=== PATIENT | male | born 1950 | race Caucasian/White ===

== ENCOUNTER 2020-12-25 04:42 | Outpatient (CLI) | payer OTHER, SELFPAY ==
[2020-12-25 11:53] LABS: Calculated LDL 114 mg/dL (<100); Cholesterol 193 mg/dL (<200); HDL Cholesterol 70 mg/dL (40-60); Triglyceride 46 mg/dL (<150)
== END 2020-12-25 04:43 | disposition home or self-care (01) ==
LOC: LBO 04:42
PROVIDERS: PCP Family Medicine; Visit Provider Family Medicine
DX: E78.5 Hyperlipidemia, unspecified (principal)
CPT/HCPCS: 36415; 80061

== ENCOUNTER 2021-12-22 02:27 | Outpatient (CLI) | payer MEDICARE, SELFPAY ==
[2021-12-22 13:58] LABS: HCT 42.6 % (40.0-50.0); HGB 13.8 g/dL (13.5-17.5); MCH 29.5 pg (27.0-33.0); MCHC 32.4 % (32.0-36.0); MCV 91 fL (80-95); MPV 9.9 fL (8.0-11.0); Platelet Count 229 10^3/uL (130-400); RBC 4.68 10^6/uL (4.36-5.78); RDW 13.2 % (11.8-14.1); RDW-SD 44.2 fL; WBC 7.69 10^3/uL (4.4-10.8)
[2021-12-22 22:33] LABS: PSA, Screening 1.4 ng/mL (<=6.5)
== END 2021-12-22 02:28 | disposition home or self-care (01) ==
LOC: LBO 02:28
PROVIDERS: PCP Family Medicine; Visit Provider Family Medicine
DX: R53.83 Other fatigue (principal); Z12.5 Encounter for screening for malignant neoplasm of prostate
CPT/HCPCS: 36415; 84153; 85027

== ENCOUNTER 2024-01-13 11:21 | Outpatient (CLI) | payer MEDICARE, SELFPAY ==
[2024-01-13 13:09] LABS: Calculated LDL 118 mg/dL (<100); Cholesterol 205 mg/dL (<200); Glucose 110 mg/dL (74-106); HDL Cholesterol 72 mg/dL (40-60); Triglyceride 78 mg/dL (<150)
== END 2024-01-13 11:22 | disposition home or self-care (01) ==
LOC: LOS 11:21
PROVIDERS: PCP Family Medicine; Referring Provider Family Medicine; Visit Provider Family Medicine
DX: Z12.5 Encounter for screening for malignant neoplasm of prostate (principal); E78.5 Hyperlipidemia, unspecified; R73.9 Hyperglycemia, unspecified
CPT/HCPCS: 36415; 80061; 82947; 84153

== ENCOUNTER 2024-04-20 16:19 | Emergency (ER) | payer MEDICARE, SELFPAY ==
[2024-04-20] VITALS (8 sets, daily range): BP systolic 153–178; BP diastolic 67–84; PULSE 54–63; RESP 13–16; TEMP 36.7–37; O2SAT 95–98
--- NOTE | 2024-04-20 17:08 | W.ED.GENAD ---
Discharge Plan Disposition Patient Disposition: Home Discharge Details Clinical Impression: Kidney stone on right side Primary Care Provider: Luis Enrique Emanuel ED Provider: Itzel Villarreal Home Meds and New Rx's Prescriptions: New tamsulosin 0.4 mg capsule 0.4 mg PO DAILY Qty: 14 0RF ondansetron 4 mg tablet,disintegrating 4 mg PO Q8H PRNQty: 20 0RF Continued albuterol sulfate 90 mcg/actuation HFA aerosol inhaler 2 puff IH 6XD PRN (Reason: shortness of breath or wheezing) Qty: 18 2RF multivitamin [Daily Multi-Vitamin] 1 EACH tablet 1 ea PO DAILY cholecalciferol (vitamin D3) 1,000 UNIT capsule 1,000 unit PO DAILY Discharge Instructions Instructions: How to Strain Your Urine, Kidney Stone, Adult ED Additional Instructions: Please call Dr. Richardson's office first thing in the morning to schedule follow-up appointment for evaluation of your kidney stone. Use the Flomax as prescribed. I recommend that you take 600 mg of ibuprofen every 8 hours as needed for discomfort. Your next dose is due at 9:00 p.m. You may use the Zofran provided as needed for nausea/vomiting. Stay well-hydrated, drinking plenty of fluids throughout the day. Eat a gentle diet. Please strain your urine every time you go to catch any stones or stone fragments. Return to emergency care if you develop new fever, inability to urinate, uncontrollable vomiting, worsening abdominal pain despite treatment, or if you are very worried and need to be rechecked again immediately Referrals: [facility] [Provider Group] [facility] General Date/Time Provider Initiated Documentation: 04/20/24 17:00. HPI Narrative: Zechariah is a 74-year-old male who presents to the emergency department today for evaluation of right lower quadrant pain. He reports that last night he had chills when he went to bed. He woke up in the middle of the night with right lower quadrant pain. Has been intermittent throughout the day, waxing and waning with feeling of being feverish.. He has been taking ibuprofen for discomfort with some improvement in symptoms. He has also had nausea/vomiting throughout the day, unable to hold down any p.o. Denies recorded fever, congestion, sore throat, cough, change in urine output, hematuria, diarrhea. He does have history of abdominal surgery, bilateral hernia repairs. He has not had a colonoscopy. He denies abdominal pain at this time. Physical exam very reassuring. Patient is alert and oriented, no acute distress. Moist mucous membranes. Abdomen soft, nondistended, nontender to palpation, no rigidity or guarding. Negative psoas sign. Easy work of breathing, lung sounds clear bilaterally. Normal heart sounds. DDx includes but is not limited to: Appendicitis, diverticulitis, nephrolithiasis, bowel obstruction, colitis I independently interpreted the following tests: CBC, CMP reassuring. Mildly elevated BUN to creatinine ratio consistent with mild dehydration. UA reassuring, no concern for UTI. CT abdomen/pelvis performed, significant for 3.3 mm ureteral stone on right side. While in the emergency department Zechariah received IV fluids, Zofran for nausea, Tylenol for discomfort, and Flomax to help facilitate passage of stone. He was able to tolerate p.o. denise pal and crackers without difficulty. As pain has been well-controlled with ibuprofen/Tylenol and patient is able to tolerate p.o. at this time, patient is safe to discharge home and does not require hospitalization to manage symptoms. Recommend straining urine at home, using Flomax and Zofran as needed, and follow-up with urology for management of kidney stone. Reviewed red flags indicating need for return to emergency care. Patient and his voiced agreement with plan of care. Related Data Home Medications ?Medication ?Instructions ?Recorded ?Confirmed cholecalciferol (vitamin D3) 25 1,000 unit PO DAILY 11/26/17 01/13/24 mcg (1,000 unit) capsule multivitamin (Daily Multi-Vitamin 1 ea PO DAILY 11/26/17 01/13/24 tablet) albuterol sulfate 90 mcg/actuation 2 puff inhalation 6XD PRN 01/13/24 01/13/24 aerosol inhaler shortness of breath or wheezing #18 grams ondansetron 4 mg disintegrating 4 mg PO Q8H PRN #20 tabs 04/20/24 tablet tamsulosin 0.4 mg capsule 0.4 mg PO DAILY #14 caps 04/20/24 Previous Rx's ?Medication ?Instructions ?Recorded albuterol sulfate 90 mcg/actuation 2 puff inhalation 6XD PRN 05/23/24 aerosol inhaler shortness of breath or wheezing #18 grams ondansetron 4 mg disintegrating 4 mg PO Q8H PRN #20 tabs 04/20/24 tablet tamsulosin 0.4 mg capsule 0.4 mg PO DAILY #14 caps 04/20/24 Allergies Allergy/AdvReac Type Severity Reaction Status Date / Time No Known Allergies Allergy Verified 04/20/24 16:30 General Stated Complaint: Abd Prob SUSAN: 3 Review of Systems Narrative: see HPI Exam Const General: cooperative, healthy appearing, comfortable, no acute distress and well developed Nutritional Appearance: average body habitus HENSD Head: normal to inspection General nose exam: external nose normal Mouth: oral mucosae normal and moist mucous membranes Throat: posterior oropharynx normal Resp Effort & Inspection: normal respiratory effort and able to speak in complete sentences Auscultation: clear to auscultation bilaterally Cardio Rate: regular rate Rhythm: regular rhythm GI Inspection: normal to inspection and non-distended Palpation: soft, not firm, no guarding and nontender Auscultation: normal bowel sounds Course Vital Signs Vital signs: Vital Signs Temperature 36.7 C 04/20/24 16:26 Pulse 54 L 04/20/24 16:26 Respiratory Rate 13 04/20/24 16:26 Blood Pressure 178/84 H 04/20/24 16:26 Pulse Oximetry 95 04/20/24 16:26 Temperature 36.7 C 04/20/24 16:26 Pulse 54 L 04/20/24 16:26 Respiratory Rate 13 04/20/24 16:26 Blood Pressure 178/84 H 04/20/24 16:26 Pulse Oximetry 95 04/20/24 16:26 Oxygen Delivery Method Room Air 04/20/24 16:26 Oxygen Flow Rate 0 04/20/24 16:26 Pain Level 7 04/20/24 16:26 Medical Decision Making Quality:SDOH Health Related Social Needs: No Data to Display PFSH All Active Problems (Updated 04/20/24 @ 19:37 by Itzel Higgins) Kidney stone on right side (Acute) Physical exam (Acute) COVID-19 (Acute) Onset-07/27/22 Vaccinated x3 Adjustment disorder with depressed mood (Acute) Erectile dysfunction (Acute) Carpal tunnel syndrome on left (Acute) Screening for prostate cancer (Acute) Hydrocele (Acute 03/11/13) Unilateral inguinal hernia (Acute) right Wheezing (Acute) Surgical History Repair of inguinal hernia B/L Family History Mother Neoplasm BREAST Stroke Brother Depression Stroke Social History (Updated 01/20/24 @ 18:13 by Eva Ulloa) Smoking/Tobacco Use Status: Never Second Hand Exposure: Yes Smoking risk assessment performed?: Yes Alcohol Intake: never Drug use: Never Substance use type: does not use Adopted: No Caregiver/Support person: No Household members: significant other Housing: house Number of Children: 2 Communication Needs: Deaf and Hard of Hearing Education Level: high school Do you need help understanding health information?: Often 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 Pets and animals: Yes Pets and animals: farm animals Sexually active: No Do you think of yourself as: straight/heterosexual Current gender identity: male What is your relationship status?: living with partner How often do you talk on the phone with friends or family?: three or more times per week How often do you get together with friends or relatives?: once per week How often do you attend latter-day or alevism services?: decline to answer Do you belong to any clubs or organized social groups?: no Panel score (0-1 are the most socially isolated patients): 2 What type of physical activity do you participate in: other 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
[2024-04-20] MEDS: ACETAMINOPHEN 1,000 MG/100 ML BTL 400 MG IVPB (17:22)
[2024-04-20 17:24] LABS: Abs Immature Grans 0.04 10^3/uL (0.0-0.06); Absolute Basophil Count 0.02 10^3/uL (0.0-0.2); Absolute Eosinophil Count 0.06 10^3/uL (0.0-0.7); Absolute Lymphocyte Count 0.62 10^3/uL (1.2-3.4); Absolute Monocyte Count 0.48 10^3/uL (0.1-0.8); Absolute Neutrophil Count 9.16 10^3/uL (1.2-6.7); Basophils % 0.2 %; Eosinophils % 0.6 %; HCT 41.2 % (40.0-50.0); HGB 13.9 g/dL (13.5-17.5); Immature Grans % 0.4 %; MCH 29.9 pg (27.0-33.0); MCHC 33.7 % (32.0-36.0); MCV 89 fL (80-95); MPV 9.6 fL (8.0-11.0); Monocytes % 4.6 %; Neutrophils % 88.2 %; Platelet Count 206 10^3/uL (130-400); RBC 4.65 10^6/uL (4.36-5.78); RDW-SD 42.2 fL; WBC 10.38 10^3/uL (4.4-10.8)
[2024-04-20] MEDS: Normal Saline 1,000 ML 125 ML IV (17:24)
[2024-04-20] MEDS: Ondansetron 4 MG/2 ML VIAL IVP (17:24)
[2024-04-20 17:32] LABS: Lipase 28 U/L (16-77)
[2024-04-20 17:38] LABS: ALT 22 U/L (16-63); AST 17 U/L (15-37); Albumin 4.1 g/dL (3.4-5.0); Alkaline Phosphatase 104 U/L (46-116); Anion Gap 6.3 mmol/L (3-11); BUN 30 mg/dL (7-18); Bilirubin, Total 0.46 mg/dL (0.2-1.0); CO2 29.7 mmol/L (21.0-32.0); CREATININE 1.4 mg/dL (0.70-1.30); Calcium 9.4 mg/dL (8.5-10.1); Chloride 102 mmol/L (98-107); Estimated GFR 52.09 (mL/min/1.73m2); Glucose 123 mg/dL (74-106); Magnesium 2.1 mg/dL (1.8-2.4); Potassium 4.3 mmol/L (3.5-5.1); Sodium 138 mmol/L (136-145); Total Protein 7.7 g/dL (6.4-8.2)
--- NOTE | 2024-04-20 18:00 | DI.CT_ITS ---
Exam(s) CT ABDOMEN PELVIS W EXAM: CT ABDOMEN PELVIS W CLINICAL HISTORY: RLQ pain, n/v. TECHNIQUE: Imaging Protocol: Axial computed tomography images with coronal and sagittal reformatted images were created and reviewed CONTRAST MATERIAL: Intravenous: Omnipaque-350 100cc Oral: None COMPARISON: No exams were available for comparison FINDINGS: VISUALIZED LUNG BASES: No nodules nor pleural effusions evident. ABDOMEN: There is no ascites. LIVER: There are no focal hepatic lesions evident. No dilated intrahepatic ducts. GALLBLADDER/BILIARY: No obvious gallbladder pathology. CBD is not dilated. PANCREAS: No evidence of pancreatic mass nor dilatation of the pancreatic duct. SPLEEN: Spleen is not enlarged. No obvious intrasplenic lesions. Small splenic calcified granulomas incidentally noted. Splenic and portal veins are patent. ADRENALS: There are no significant adrenal masses. KIDNEYS:A small benign cortical cyst in the lateral cortex of the left kidney which measures 9 mm. D oes not require further workup. No significant focal left kidney findings. In the opposite-right ki dney there is also another benign similar size cyst. However, there is unilateral right-sided perine phric streaking and mild dilatation of the right collecting system including the right ureter down to the level of the 3-4 mm calculus in the lower right ureter just above the UVJ. There are no calculi within the urinary bladder. ABDOMINAL AORTA: Abdominal aorta is not enlarged. LYMPH NODES:There is no retroperitoneal nor paraaortic adenopathy. ABDOMINAL WALL: There is evidence of right inguinal hernia repair. No obvious hernia at this time no r other anterior abdominal hernias. GI: There is no evidence of bowel obstruction, free air, nor abscess. PELVIS: GI: No evidence of appendicitis.Extensive sigmoid diverticulosis without evidence of obvious acute di verticulitis. LYMPH NODES: There is no intrapelvic nor inguinal adenopathy. REPRODUCTIVE: Moderately enlarged prostate gland. Measures 5.7 cm wide. URINARY BLADDER: No calculi nor obvious masses evident OSSEOUS: No fractures and no significant osseous lesions. IMPRESSION: 1. There is a 3-4 mm calculus in the distal right ureter resulting in mild hydronephrosis and hydrour eter above this level. There is also ipsilateral perinephric streaking evident. The opposite-left k idney appears unremarkable. 2. No calculi seen in the urinary bladder. RADIATION DOSE DELIVERED: 322.24mGy.cm Total DLP DATA REPOSITORY: All CT scans at this facility are submitted to the National Radiology Data Registry (NRDR) Dose Index Registry (DIR) with the [employer] (ACR). RADIATION OPTIMIZATION: All CT scans at this facility use at least one of these dose optimization te chniques: automated exposure control; mA and/or kV adjustment per patient size (includes targeted exa ms where dose is matched to clinical indication); or iterative reconstruction.
[2024-04-20] MEDS: Omnipaque 350 MG/ML 100 ML BTL IJ (18:01)
[2024-04-20] MEDS: Normal Saline - Diluent 50 ML VIAL IJ (18:03)
--- NOTE | 2024-04-20 18:33 | DI.[facility]_ITS ---
PROCEDURE INFORMATION: Exam: CT Abdomen And Pelvis With Contrast Exam date and time: 04/20/2024 5:50 PM Age: 74 years old Clinical indication: Nausea and vomiting; Abdominal pain; Localized; Right lower quadrant (rlq); Patient HX: Rlq pain, n/v TECHNIQUE: Imaging protocol: Computed tomography of the abdomen and pelvis with contrast. Radiation optimization: All CT scans at this facility use at least one of these dose optimization techniques: automated exposure control; mA and/or kV adjustment per patient size (includes targeted exams where dose is matched to clinical indication); or iterative reconstruction. Contrast material: [id number]; Contrast volume: 100 ml; Contrast route: INTRAVENOUS (IV); COMPARISON: No relevant prior studies available. FINDINGS: Liver: Normal. No mass. Gallbladder and biliary ducts: Normal. No calcified stones. No ductal dilation. Pancreas: Normal. No ductal dilation. Spleen: Normal. No splenomegaly. Adrenal glands: Normal. No mass. Kidneys and ureters: On series 9, image 72 there is a 3.3 mm stone of the distal right ureter producing mild right hydroureteronephrosis and perinephric edema. There is delayed nephrogram formation of the right kidney also noted. Subcentimeter simple appearing bilateral renal cortical cysts noted. Left kidney is otherwise unremarkable. Stomach and bowel: Significant diverticulosis throughout the distal colon. No bowel wall thickening or evidence of bowel obstruction. Appendix: No evidence of appendicitis. Intraperitoneal space: Unremarkable. No free air. No significant fluid collection. Vasculature: Unremarkable. No abdominal aortic aneurysm. Lymph nodes: Unremarkable. No enlarged lymph nodes. Urinary bladder: Unremarkable as visualized. Reproductive: Unremarkable as visualized. Bones/joints: Moderate dextroscoliosis of the lumbar spine. Multilevel degenerative disc changes and facet arthropathy throughout the lower spine. No vertebral body compression or acute fracture. Moderate degenerative changes in the bony pelvis. Soft tissues: Unremarkable. IMPRESSION: Obstructing 3.3 mm distal right ureter stone producing mild hydronephrosis and perinephric edema. Other incidental chronic findings as noted Dictated and Authenticated by: Bhavin Manuel MD. Ordering:DALIA Robbins MD
[2024-04-20 18:56] LABS: Bilirubin Negative (Negative); Blood Small (Negative); Clarity Clear (Clear); Glucose Negative (Negative); Ketones 40 mg/dL (Negative); Leukocyte Esterase Negative (Negative); Nitrite Negative (Negative); Specific Gravity 1.015 (1.005-1.025); Urobilinogen 0.2 mg/dL (Up to 0.2); pH 5.5 (5-8)
[2024-04-20 19:01] LABS: Bacteria Rare HPF (Negative); C & S Indicated? No; Casts Negative LPF (Negative); Crystals Negative HPF (Negative); Epithelial Cells Negative HPF (Negative); Mucus Negative (Negative); WBC Negative HPF (0-5)
--- NOTE | 2024-04-20 20:02 | NUR.NOTE ---
Nursing Note:Pt left prior to order for take home ondansatron.
--- NOTE | 2024-04-20 20:51 | NUR.NOTE ---
Referral faxed to [facility] to f/u for 3.3mm Kidney stone R uretur.Nursing Note:
== END 2024-04-20 20:03 | disposition home or self-care (01) ==
PROVIDERS: Emergency Provider Nurse Practitioner Family; PCP Family Medicine
DX: R10.31 Right lower quadrant pain (principal); R11.2 Nausea with vomiting, unspecified; N20.0 Calculus of kidney
CPT/HCPCS: 80053; 83690; 96374; 96375; 99285; 74177; 81003; 81015; 83735; 85025; 99283; J0131; J2405; J3490

== ENCOUNTER 2024-04-23 07:12 | Emergency (ER) | payer MEDICARE, SELFPAY ==
[2024-04-23 07:16] VITALS: BP 123/58; PULSE 58; RESP 16; TEMP 35.9; O2SAT 94
[2024-04-23 07:26] VITALS: BP 123/58; PULSE 58; RESP 16; TEMP 35.9; O2SAT 94
--- NOTE | 2024-04-23 07:34 | ED.GENADUL_ITS ---
Discharge Plan Disposition Patient Disposition: Home Condition: Stable Discharge Details Clinical Impression: Kidney stone on right side Primary Care Provider: Luis Enrique Emanuel ED Provider: Adriano Pal Home Meds and New Rx's Prescriptions: New oxycodone 5 mg tablet 5 mg PO Q8H PRNQty: 8 0RF Continued albuterol sulfate 90 mcg/actuation HFA aerosol inhaler 2 puff IH 6XD PRN (Reason: shortness of breath or wheezing) Qty: 18 2RF tamsulosin 0.4 mg capsule 0.4 mg PO DAILY Qty: 14 0RF ondansetron 4 mg tablet,disintegrating 4 mg PO Q8H PRNQty: 20 0RF Discharge Instructions Additional Instructions: Intake 1000 mg of acetaminophen every 6 hours as needed. Do not exceed 3000 mg in a 24-hour period You can take 400 mg of ibuprofen every 4 hours or 600 mg every 6 hours as needed If your pain is not controlled with acetaminophen and ibuprofen he can take an oxycodone. If you are taking this daily I would recommend using an [id number] stool softener to prevent constipation such as docusate If you feel more ill or have new symptoms such as high fevers or persistent vomiting return to the emergency department for reevaluation HPI General Mode of arrival: ambulatory . Date/Time Provider Initiated Documentation: 04/23/24 07:12 . Limitations to Documentation: no limitations . Information obtained by: patient . History of Present Illness 74 year old M presents to the emergency department with the chief complaint of right kidney stone pain, described as moderate, Quality is described as aching, and is localized to the back. Patient reports no radiation. Patient started experiencing this day(s) (3) and it has been constant. No relieving factors improve symptom(s), No exacerbating factors reported . Patient notes no other symptoms.; denies fever/chills. Patient did receive the following treatments prior to arrival, NSAID Related Data Home Medications ?Medication ?Instructions ?Recorded ?Confirmed albuterol sulfate 90 mcg/actuation 2 puff inhalation 6XD PRN 01/13/24 04/23/24 aerosol inhaler shortness of breath or wheezing #18 grams ondansetron 4 mg disintegrating 4 mg PO Q8H PRN #20 tabs 04/20/24 04/23/24 tablet tamsulosin 0.4 mg capsule 0.4 mg PO DAILY #14 caps 04/20/24 04/23/24 oxycodone 5 mg tablet 5 mg PO Q8H PRN #8 tabs 04/23/24 Previous Rx's ?Medication ?Instructions ?Recorded albuterol sulfate 90 mcg/actuation 2 puff inhalation 6XD PRN 01/13/24 aerosol inhaler shortness of breath or wheezing #18 grams ondansetron 4 mg disintegrating 4 mg PO Q8H PRN #20 tabs 04/20/24 tablet tamsulosin 0.4 mg capsule 0.4 mg PO DAILY #14 caps 04/20/24 oxycodone 5 mg tablet 5 mg PO Q8H PRN #8 tabs 04/23/24 Allergies Allergy/AdvReac Type Severity Reaction Status Date / Time No Known Allergies Allergy Verified 04/23/24 07:23 General Stated Complaint: Urinary SUSAN: 3 Review of Systems All systems reviewed & are unremarkable except as noted in HPI and below Constitutional Constitutional: Denies chills, Denies fever(s) and Denies weakness Cardiovascular Cardiovascular: Denies chest pain and Denies dyspnea Respiratory Respiratory: Denies cough and Denies dyspnea Gastrointestinal Gastrointestinal: Denies abdominal pain and Denies vomiting Genitourinary Genitourinary: Denies dysuria Musculoskeletal Musculoskeletal: Denies joint swelling Neurologic Neurologic: Denies weakness Exam Const General: no acute distress Orientation: alert [facility] Head: normal to inspection Ears: external ears normal General nose exam: external nose normal Mouth: moist mucous membranes Eyes General: appearance normal, both eyes and all related structures Neck Neck: normal visual inspection Resp Effort & Inspection: normal respiratory effort and able to speak in complete sentences Cardio Rate: regular rate Skin General skin exam: no rashes or lesions noted Neuro General: patient alert and patient oriented x3 Extrem General: normal to inspection Psych Mental Status: mental status grossly normal Course Vital Signs Vital signs: Vital Signs Temperature 35.9 C L 04/23/24 07:16 Pulse 58 L 04/23/24 07:16 Respiratory Rate 16 04/23/24 07:16 Blood Pressure 123/58 L 04/23/24 07:16 Pulse Oximetry 94 04/23/24 07:16 Temperature 35.9 C L 04/23/24 07:26 Temperature Source Tympanic 04/23/24 07:26 Pulse 58 L 04/23/24 07:26 Respiratory Rate 16 04/23/24 07:26 Respiratory Effort Normal 04/23/24 07:24 Blood Pressure 123/58 L 04/23/24 07:26 Pulse Oximetry 94 04/23/24 07:26 Oxygen Delivery Method Room Air 04/23/24 07:26 Oxygen Flow Rate 0 04/23/24 07:26 Pain Level 0 04/23/24 07:26 Comment hard of hearing 04/23/24 07:26 Medical Decision Making 74-year-old male who was diagnosed with a kidney stone on CAT scan on after having sudden right flank pain and has a 3 to 4 mm stone distal ureter comes in with continued intermittent pain. He currently has [place] no pain but thinks he has been taking too much ibuprofen and on evaluation it sounds like he has been taking 600 every 4 hours. He denies any burning with urination, no fevers no chills or vomiting. He says he feels fine right now. Given reassuring vitals and no fevers or chills or other symptoms to suggest infected stone do not feel any labs or imaging indicated. I am going to educate on proper dosing of Tylenol and ibuprofen and also provided short course of oxycodone. He is stable for discharge and will follow-up with PCP or urology, return precautions given Differential Diagnosis Differential Diagnosis: kidney stone, renal colic Medical Records Medical records reviewed: Yes I reviewed the patient's medical records. Quality:SDOH Health Related Social Needs: No Data to Display PFSH All Active Problems (Updated 04/23/24 @ 07:36 by Adriano Pal MD) Kidney stone on right side (Acute) Physical exam (Acute) COVID-19 (Acute) Onset-07/27/22 Vaccinated x3 Adjustment disorder with depressed mood (Acute) Erectile dysfunction (Acute) Carpal tunnel syndrome on left (Acute) Screening for prostate cancer (Acute) Hydrocele (Acute 10/31/12) Unilateral inguinal hernia (Acute) right Wheezing (Acute) Surgical History Repair of inguinal hernia B/L Family History Mother Neoplasm BREAST Stroke Brother Depression Stroke Social History (Updated 01/20/24 @ 18:13 by Eva King Smoking/Tobacco Use Status: Never Second Hand Exposure: Yes Smoking risk assessment performed?: Yes Alcohol Intake: never Drug use: Never Substance use type: does not use Adopted: No Caregiver/Support person: No Household members: significant other Housing: house Number of Children: 2 Communication Needs: Deaf and Hard of Hearing Education Level: high school Do you need help understanding health information?: Often 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 Pets and animals: Yes Pets and animals: farm animals Sexually active: No Do you think of yourself as: straight/heterosexual Current gender identity: male What is your relationship status?: living with partner How often do you talk on the phone with friends or family?: three or more times per week How often do you get together with friends or relatives?: once per week How often do you attend scientology or jainism services?: decline to answer Do you belong to any clubs or organized social groups?: no Panel score (0-1 are the most socially isolated patients): 2 What type of physical activity do you participate in: other Details: 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
== END 2024-04-23 08:03 | disposition home or self-care (01) ==
PROVIDERS: Emergency Provider Emergency Medicine; PCP Family Medicine
DX: R10.31 Right lower quadrant pain (principal); N20.0 Calculus of kidney
CPT/HCPCS: 99283

== ENCOUNTER 2024-11-08 03:57 | Outpatient (CLI) | payer MEDICARE, SELFPAY ==
[2024-11-08 17:47] LABS: PSA, Screening 1.7 ng/mL (<=6.5)
== END 2024-11-08 03:58 | disposition home or self-care (01) ==
LOC: LBO 03:57
PROVIDERS: PCP Family Medicine; Visit Provider Family Medicine
DX: Z12.5 Encounter for screening for malignant neoplasm of prostate (principal)
CPT/HCPCS: 36415; 84153

== ENCOUNTER 2025-08-04 09:09 | Emergency (ER) | payer MEDICARE, SELFPAY ==
[2025-08-04 09:14] VITALS: BP 178/72; PULSE 56; RESP 16; O2SAT 98
--- NOTE | 2025-08-04 09:30 | DI.RAD_ITS ---
Exam(s) XR SHOULDER LT COMPLETE 2+V EXAM: XR SHOULDER LT COMPLETE 2+V CLINICAL HISTORY: pain s/p fall 5 days ago. TECHNIQUE: 2D digital imaging was performed. Four views. COMPARISON: No exams were available for comparison FINDINGS: BONES: No acute fracture is present. No bony destructive lesion is seen. JOINTS: No dislocation present. Mild degenerative changes of the AC joint and glenohumeral joint. SOFT TISSUE: Benign-appearing soft tissue calcifications in the axillary region. IMPRESSION: No acute abnormality. The preliminary [facility] report was reviewed. DATA REPOSITORY: RADIATION DOSE DELIVERED:
--- NOTE | 2025-08-04 09:30 | DI.RAD_ITS ---
Exam(s) XR RIBS LT W PA LAT CHEST CLINICAL HISTORY pain s/p fall 5 days ago. COMPARISON: No exams were available for comparison TECHNIQUE:: PA and lateral views of the chest and four views of the left ribs were performed. FINDINGS: LUNGS: Clear. No pleural abnormality seen. HEART: Mildly enlarged. MEDIASTINUM: Aorta mildly tortuous. BONES: No displaced rib fracture is seen. The lower ribs are not well seen. No compression fractures are seen in the thoracic spine. There is scoliosis at the thoracolumbar junction. No bony destructive lesion is seen. OTHER FINDINGS: None. IMPRESSION: 1. Unremarkable radiographic appearance of the left ribs. 2. No acute pulmonary findings. The preliminary [facility] report was reviewed.
--- NOTE | 2025-08-04 09:30 | ED.GENADUL_ITS ---
Discharge Plan Disposition Patient Disposition: Home Condition: Stable Discharge Details Clinical Impression: Rib contusion, Sprain of left shoulder Primary Care Provider: Luis Enrique Emanuel ED Provider: Adriano Pal Home Meds and New Rx's Prescriptions: Continued albuterol sulfate 90 mcg/actuation HFA aerosol inhaler 2 puff IH 6XD PRN (Reason: shortness of breath or wheezing) Qty: 18 2RF Patient Comments: Has it but does not use it 08/04/25 Discharge Instructions Additional Instructions: Your x-rays did not show any concerning findings at this time. I suspect you have a shoulder sprain, you could have a rotator cuff injury. If you not improving within a week follow-up with your primary care provider and we may potentially have to have an outpatient MRI. You can take 1000 mg of acetaminophen every 6 hours as needed, do not exceed 3000 mg in a 24-hour period. You can take 400 mg of ibuprofen every 4 hours as needed. You can also try using topical remedies such as topical diclofenac. If you feel more ill or have severe worsening pain return to the emergency department for reevaluation. Stand Alone Forms: Portal Information HPI General Mode of arrival: ambulatory . Date/Time Provider Initiated Documentation: 08/04/25 09:26 . Limitations to Documentation: no limitations . Information obtained by: patient . History of Present Illness 75 year old M presents to the emergency department with the chief complaint of left shoulder and rib pain s/p fall 5 days ago, described as moderate, Quality is describe d as aching, and is localized to the chest, left and upper extremity. Patient reports no radiation. Patient started experiencing this day(s) (5) and it has been constant. Rest improves symptom(s), Movement worsens symptoms . Patient notes no other symptoms.. Related Data Home Medications ?Medication ?Instructions ?Recorded ?Confirmed albuterol sulfate 90 mcg/actuation 2 puff inhalation 6 XD PRN 01/13/24 08/04/25 aerosol inhaler shortness of breath or wheez ing #18 grams Previous Rx's ?Medication ?Instructions ?Recorded albuterol sulfate 90 mcg/actuation 2 puff inhalation 6 XD PRN 01/13/24 aerosol inhaler shortness of breath or wheez ing #18 grams Allergies Allergy/AdvReac Type Severity Reaction Status Date / Time Penicillins AdvReac Mild Other (See Verified 08/04/25 09:20 Comment) General Stated Complaint: Chest/Rib SUSAN: 4 Review of Systems All systems reviewed & are unremarkable except as noted in HPI and below Constitutional Constitutional: Denies chills, Denies fever(s) and Denies weakness ENT Ears, Nose, Mouth, and Throat: Denies neck pain Cardiovascular Cardiovascular: Denies dyspnea Respiratory Respiratory: Denies cough and Denies dyspnea Gastrointestinal Gastrointestinal: Denies abdominal pain, Denies nausea and Denies vomiting Musculoskeletal Musculoskeletal: Reports arthralgias and Denies neck pain Neurologic Neurologic: Denies weakness Exam Const General: no acute distress Orientation: alert [facility] Head: normal to inspection Ears: external ears normal General nose exam: external nose normal Mouth: moist mucous membranes Eyes General: appearance normal, both eyes and all related structures Neck Neck: normal visual inspection Chest Chest: no crepitus and tenderness Resp Effort & Inspection: normal respiratory effort and able to speak in complete sentences Cardio Rate: regular rate Skin General skin exam: no rashes or lesions noted Neuro General: patient alert and patient oriented x3 Extrem General: capillary refill normal, no cyanosis and no edema Psych Mental Status: mental status grossly normal Course Vital Signs Vital signs: Vital Signs Pulse 56 L 08/04/25 09:14 Respiratory Rate 16 08/04/25 09:14 Blood Pressure 178/72 H 08/04/25 09:14 Pulse Oximetry 98 08/04/25 09:14 Pulse 56 L 08/04/25 09:14 Respiratory Rate 16 08/04/25 09:14 Blood Pressure 178/72 H 08/04/25 09:14 Blood Pressure Position Sitting 08/04/25 09:14 Pulse Oximetry 98 08/04/25 09:14 Oxygen Delivery Method Room Air 08/04/25 09:14 Oxygen Flow Rate 0 08/04/25 09:14 Pain Level 0 08/04/25 09:14 Medical Decision Making 75-year-old male comes in with left shoulder and left-sided rib pain after he fell 5 days ago. He says he was in his barn and fell in a hay hole landing on his left shoulder and chest. Did not hit his head and did not have any loss of consciousness. Denies any headaches, neck pain, back pain, abdominal pain, anterior chest pain. He has reproducible tenderness over the left 4th and 5th ribs in the midaxillary line without a visible or palpable deformity. There is no crepitus. He also has tenderness in the left anterior shoulder. He is able to fully range the shoulder but with pain. He has no tenderness elsewhere in the arm. No abdominal tenderness or leg tenderness and he is ambulating with a normal gait. Given the left shoulder and left-sided rib pain will obtain x-rays to evaluate for possible fractures. X-rays on my read and virtual radiology read show no acute findings. Patient is stable. I suspect rib contusion and a left shoulder strain and potentially rotator cuff injury. I offered him a sling but he declined it. He is shazia follow-up with his PCP if not improving for potential shoulder MRI. Return precautions given. Differential Diagnosis Differential Diagnosis: fracture, sprain, strain PFSH All Active Problems (Updated 08/04/25 @ 10:20 by Adriano Pal MD) Sprain of left shoulder (Acute) Rib contusion (Acute) Physical exam (Acute) COVID-19 (Acute) Onset-07/27/22 Vaccinated x3 Adjustment disorder with depressed mood (Acute) Erectile dysfunction (Acute) Carpal tunnel syndrome on left (Acute) Screening for prostate cancer (Acute) Hydrocele (Acute 10/31/12) Unilateral inguinal hernia (Acute) right Wheezing (Acute) Surgical History Repair of inguinal hernia B/L Family History Mother Neoplasm BREAST Stroke Brother Depression Stroke Social History Smoking/Tobacco Use Status: Never Second Hand Exposure: Yes Smoking risk assessment performed?: Yes Alcohol Intake: never Drug use: Never Substance use type: does not use Adopted: No Caregiver/Support person: No Household members: significant other Housing: house Number of Children: 2 Communication Needs: Deaf and Hard of Hearing Education Level: high school Do you need help understanding health information?: Often 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 Pets and animals: Yes Pets and animals: farm animals Sexually active: No Do you think of yourself as: straight/heterosexual Current gender identity: male What is your relationship status?: living with partner How often do you talk on the phone with friends or family?: three or more times per week How often do you get together with friends or relatives?: once per week How often do you attend quaker or mosque services?: decline to answer Do you belong to any clubs or organized social groups?: no Panel score (0-1 are the most socially isolated patients): 2 What type of physical activity do you participate in: other Details: 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
[2025-08-04] MEDS: Ibuprofen 600 MG TAB PO (09:48)
--- NOTE | 2025-08-04 09:56 | DI.VRAD_ITS ---
PROCEDURE INFORMATION: Exam: XR Left Ribs Exam date and time: 08/04/2025 9:38 AM Age: 75 years old Clinical indication: Injury or trauma; Fall; Blunt trauma (contusions or hematomas); Rib area, left side TECHNIQUE: Imaging protocol: Radiologic exam of the left ribs. Views: 2 views. COMPARISON: CT ABDOMEN PELVIS W 04/20/2024 5:50 PM FINDINGS: Bones/joints: Normal. Soft tissues: Normal. IMPRESSION: No acute findings. PROCEDURE INFORMATION: Exam: XR Chest Exam date and time: 08/04/2025 9:38 AM Age: 75 years old Clinical indication: Injury or trauma; Fall; Blunt trauma (contusions or hematomas); Rib area, left side TECHNIQUE: Imaging protocol: Radiologic exam of the chest. Views: 2 views. COMPARISON: CT ABDOMEN PELVIS W 04/20/2024 5:50 PM FINDINGS: Lungs: Unremarkable. No consolidation. Pleural spaces: Unremarkable. No pleural effusion. No pneumothorax. Heart/Mediastinum: Unremarkable. No cardiomegaly. Vasculature: There is unfolding of the thoracic aorta. There are aortic arch calcifications. Bones/joints: Mild degenerative disease of bilateral acromioclavicular joints. Soft tissues: Calcification in the left chest wall. IMPRESSION: No acute cardiopulmonary process. Dictated and Authenticated by: Manfred Willingham MD. Orderin Demarco Oh MD
--- NOTE | 2025-08-04 10:08 | DI.VRAD_ITS ---
PROCEDURE INFORMATION: Exam: XR Left Shoulder Exam date and time: 08/04/2025 9:45 AM Age: 75 years old Clinical indication: Injury or trauma; Fall; Blunt trauma (contusions or hematomas); Shoulder; Left TECHNIQUE: Imaging protocol: Radiologic exam of the left shoulder. Views: 2 or more views. COMPARISON: CR XR RIBS LT W PA LAT CHEST 08/04/2025 9:38 AM FINDINGS: Bones/joints: Soft tissue calcifications around the greater tuberosity, suggestive of rotator cuff calcific tendinosis. Mild degenerative disease of the left acromioclavicular joint. There are mild degenerative changes in the left glenohumeral joint. Soft tissues: Calcification in the left chest wall. IMPRESSION: No acute fracture or dislocation. Dictated and Authenticated by: Manfred Willingham MD. Orderin Demarco Oh MD
[2025-08-04 10:33] VITALS: BP 149/87; PULSE 51; RESP 18; O2SAT 97
== END 2025-08-04 10:34 | disposition home or self-care (01) ==
PROVIDERS: Emergency Provider Emergency Medicine; PCP Family Medicine
DX: S43.402A Unspecified sprain of left shoulder joint, initial encounter (principal); S30.11XA Contusion of abdominal wall, initial encounter; W19.XXXA Unspecified fall, initial encounter
CPT/HCPCS: 99283; 99284; 71046; 71100; 73030